=== PATIENT | male | born 1945 | race Caucasian/White ===

== ENCOUNTER 2018-11-29 05:36 | Inpatient (IN) | payer MEDICARE, OTHER ==
[2018-11-29] MEDS ORDERED: Fentanyl 100 MCG/2 ML VIAL ONE (06:24)
[2018-11-29 06:31] LABS: #Eosinphils 0.3 thou/uL (0.0-0.7); #Lymphocytes 1.7 thou/uL (1.20-3.40); #Monocytes 0.8 thou/uL (0.11-0.59); #Neutrophils 4.7 thou/uL (1.40-6.50); %Basophils 0.4 % (0.0-1.0); %Eosinophils 3.5 % (0.0-10.0); %Lymphocytes 23.2 % (21.0-51.0); %Monocytes 10.5 % (0.0-10.0); %Neutrophils 62.4 % (42.0-75.0); Hemoglobin 15.8 g/dL (14.0-18.0); Mean Corpuscular HGB CONC 34.8 g/dL (32.0-36.0); Mean Corpuscular Hemoglobin 32.5 pg (27.0-31.0); Mean Corpuscular Volume 93.4 fL (78.0-98.0); Mean Platelet Volume 7.4 fL (7.4-10.4); Platelet Count 186 thou/uL (130-400); RBC Distribution Width 11.6 % (11.5-14.5); Red Blood Cell (RBC) Count 4.85 mill/uL (4.70-6.10); White Blood Cell (WBC) Count 7.5 thou/uL (4.8-10.8)
[2018-11-29] MEDS ORDERED: Sodium Chloride 0.9% 10 ML ONE (06:32)
[2018-11-29 06:54] LABS: Anion Gap 13 mmol/L (10-20); BUN (Urea Nitrogen) 22 mg/dL (8.4-25.7); Calc. Creatinine Clearance 76 mL/min (70-130); Calcium 9.8 mg/dL (7.8-10.44); Carbon Dioxide 23 mmol/L (23-31); Chloride 105 mmol/L (98-107); Estimated GFR-MDRD 65; Glucose 118 mg/dL (83-110); Potassium 4.4 mmol/L (3.5-5.1); Sodium 137 mmol/L (136-145)
[2018-11-29] MEDS ORDERED: HYDROmorphone 2 MG/ML VIAL ONE (08:02)
[2018-11-29] MEDS ORDERED: Promethazine HCl 25 MG/ML VIAL IM PRN ×2 (08:55→10:42)
[2018-11-29] MEDS ORDERED: Meperidine HCl/PF 25 MG/ML VIAL SLOW IVP PRN (08:55)
[2018-11-29] MEDS ORDERED: Ondansetron HCl/PF 4 MG/2 ML Vial IVP PRN (08:55)
[2018-11-29] MEDS ORDERED: HYDROmorphone 2 MG/ML VIAL SLOW IVP PRN (08:55)
[2018-11-29] MEDS ORDERED: Ketorolac Tromethamine 30 MG/ML VIAL IVP PRN (08:55)
[2018-11-29] MEDS ORDERED: PACU-Morphine 4MG/ML VIAL SLOW IVP PRN (08:55)
[2018-11-29] MEDS ORDERED: Promethazine HCl 25 MG/ML VIAL SLOW IVP PRN (08:55)
[2018-11-29] MEDS ORDERED: Morphine Sulfate 2 MG/ML SYRINGE SLOW IVP PRN (08:55)
[2018-11-29 10:02] VITALS: BMI 27.9
[2018-11-29] MEDS ORDERED: Morphine 4 MG/ML VIAL SLOW IVP PRN (10:42)
[2018-11-29] MEDS ORDERED: Mag-Al 1200 mg/1200 mg/30 ML UDCUP PO PRN (10:42)
[2018-11-29] MEDS ORDERED: traMADol HCl 50 MG TAB PO PRN ×2 (10:42)
[2018-11-29] MEDS ORDERED: tiZANidine HCl 4 MG TAB PO PRN (10:42)
[2018-11-29] MEDS ORDERED: HYDROcodone/Acetaminophen 10/325 mg Tablet PO PRN ×2 (10:42)
[2018-11-29] MEDS ORDERED: diphenhydrAMINE 50 MG/ML VIAL IVP PRN (10:42)
[2018-11-29] MEDS ORDERED: Promethazine HCl 12.5 MG SUPP PR PRN (10:42)
[2018-11-29] MEDS ORDERED: Ondansetron PF 4 MG/2 ML Vial IM PRN (10:42)
[2018-11-29] MEDS ORDERED: Milk Of Magnesia 30 ML UDCUP PO PRN (10:42)
[2018-11-29] MEDS ORDERED: diphenhydrAMINE 25 MG CAP PO PRN (10:42)
[2018-11-29] MEDS ORDERED: Promethazine 25 MG TAB PO PRN (10:42)
[2018-11-29] MEDS: Ketorolac Tromethamine 30 MG/ML VIAL IVP SCH ×3 (10:57→22:36)
--- NOTE | 2018-11-29 12:49 | OP ---
DATE OF PROCEDURE: 11/29/2018 PHOTOGRAMMETRIC ENGINEER: Caden Canchola PA-C PROCEDURE PERFORMED: L4 through S1 decompressive laminectomy, posterolateral arthrodesis, pedicle screw instrumentation, demineralized bone matrix, local morselized autograft, L4 through S1. DESCRIPTION OF PROCEDURE: The patient was brought to the operating room and intubated. He was rolled in the prone position on gel-filled chest rolls. An incision was made exposing L4 through S1 and the level was confirmed by x-ray. We performed modest laminectomies bilaterally in both affected levels. We placed pedicle screws at L4, L5, and S1 bilaterally using lateral fluoroscopic guidance and the positioning was confirmed by x-ray. The anand was secured between the screws, connected by nuts, and substantial distraction was attempted between each screw for the purpose of indirect decompression of the neural foramina. Nuts were then final tightened. The wound was then extensively irrigated and MAC hemostasis was secured. A combination of demineralized bone matrix and local morselized autograft was laid over the lamina and posterolateral surfaces for the purpose of arthrodesis. Vancomycin powder was applied and the wound was then closed in anatomic layers. Job ID: [id number]
[2018-11-29] MEDS: Sodium Chloride 0.9% 1,000 ML IV SCH (13:50)
[2018-11-29] MEDS: CEFAZOLIN 2 GM in Premix Bag 1 BAG IVPB SCH ×2 (13:52→22:35)
[2018-11-29] MEDS ORDERED: Dexamethasone 20 MG/5 ML VIAL ONE (16:15)
[2018-11-29] MEDS ORDERED: PROPOFOL 200 MG/20 ML VIAL ONE (16:15)
[2018-11-29] MEDS ORDERED: Lidocaine 1% PF 5 ML VIAL ONE (16:15)
[2018-11-29] MEDS ORDERED: Glycopyrrolate 0.2 MG/ML 5 ML SYRINGE ONE (16:15)
[2018-11-29] MEDS ORDERED: Rocuronium Bromide 10 MG/ML (10ML VIAL) ONE (16:15)
[2018-11-29] MEDS ORDERED: Ondansetron PF 4 MG/2 ML Vial ONE (16:15)
[2018-11-30] MEDS: Ketorolac Tromethamine 30 MG/ML VIAL IVP SCH ×2 (06:13→13:57)
[2018-11-30] MEDS: Sodium Chloride 0.9% 1,000 ML IV SCH ×2 (07:15→13:57)
[2018-11-30] MEDS ORDERED: Lisinopril 10 MG TAB PO SCH (09:00)
[2018-11-30 12:23] VITALS: BP 149/73; TEMP 98.3
== END 2018-11-30 14:12 | disposition home or self-care (01) | DRG 460 ==
LOC: SURG A 05:36 → SJJU 09:25
PROVIDERS: ADMIT Neurological Surgery; ATTEND Neurological Surgery
PROC: 0SG3071 Fusion of Lumbosacral Joint with Autologous Tissue Substitute, Posterior Approach, Posterior Column, Open Approach (ICD-10-PCS; principal; 2018-11-29)
PROC: 0SG0071 Fusion of Lumbar Vertebral Joint with Autologous Tissue Substitute, Posterior Approach, Posterior Column, Open Approach (ICD-10-PCS; 2018-11-29)
DX: M48.062 Spinal stenosis, lumbar region with neurogenic claudication (principal); I10 Essential (primary) hypertension; Z88.2 Allergy status to sulfonamides; Z87.891 Personal history of nicotine dependence; Z79.899 Other long term (current) drug therapy
CPT/HCPCS: 36415; 76000; 80048; 85025; 93005; 93010; C1713; C1768; J0690; J1170; J1885; J2270; J3010; J3370; J3490

== ENCOUNTER 2018-12-17 10:22 | Outpatient (CLI) | payer MEDICARE, OTHER ==
--- NOTE | 2018-12-17 11:36 | RAD ---
LUMBAR SPINE 2 VIEWS: Date: 12/17/18 HISTORY: Lumbar stenosis, neurogenic claudication. FINDINGS: Postoperative changes are noted. Pedicle screws and rods transfix L4, L5, and S1 levels. Prominent de generative changes are noted with loss of disc space at L3-4, L4-5, and L5-S1 with prominent osteophy sheree seen anteriorly and posteriorly. Slight posterolisthesis at L4-5. IMPRESSION: Degenerative and postoperative changes of lumbar spine noted as described. POS: [facility]
== END 2018-12-17 10:23 | disposition home or self-care (01) ==
LOC: TBSIIMAG 10:22
PROVIDERS: ATTEND Neurological Surgery
DX: M48.062 Spinal stenosis, lumbar region with neurogenic claudication (principal); M47.816 Spondylosis without myelopathy or radiculopathy, lumbar region; Z98.890 Other specified postprocedural states
CPT/HCPCS: 72100

== ENCOUNTER 2019-02-18 13:06 | Outpatient (CLI) | payer MEDICARE, OTHER ==
--- NOTE | 2019-02-18 13:47 | RAD ---
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 COMPARISON: 12/17/18 lumbar spine radiograph series. FINDINGS: There is multilevel posterior fusion spanning L4 through S1 without evidence of perihardware lucency identified. Moderate multilevel degenerative changes throughout the lumbar spine is present with mult ilevel disc space narrowing, end plate osteophytosis and facet osteoarthritis. Incidental note of ath erosclerosis. There is straightening of the normal lumbar curvature. IMPRESSION: Moderate multilevel degenerative change of the postoperative lumbar spine. No acute compression fracture or subluxation identified. POS: [facility]
== END 2019-02-18 13:07 | disposition home or self-care (01) ==
LOC: TBSIIMAG 13:06
PROVIDERS: ATTEND Neurological Surgery
DX: M47.816 Spondylosis without myelopathy or radiculopathy, lumbar region (principal); Z98.1 Arthrodesis status
CPT/HCPCS: 72100